=== PATIENT | female | born 1950 | race Caucasian/White ===

== ENCOUNTER 2017-07-21 17:16 | Emergency (ER) | payer MEDICARE ==
[2017-07-21 17:27] VITALS: BP 125/82
--- NOTE | 2017-07-21 17:48 | UC ---
Complaint Female HPI - HPI Summary HPI Summary: Patient has been having discomfort for the past few days with urination, she is morbidly obese, she aslo presents with a skin tear on the hand. - History Of Current Complaint Chief Complaint: UCGU Stated Complaint: URINARY Time Seen by Provider: 07/21/17 17:30 Hx Obtained From: Patient ?: No Onset/Duration: Sudden Onset, Lasting Days Timing: Constant Severity Initially: Mild Severity Currently: Moderate Character: Burning Aggravating Factor(s): Urination Alleviating Factor(s): Nothing Associated Signs And Symptoms: Positive: Back Pain - Allergies/Home Medications Allergies/Adverse Reactions: Allergies Allergy/AdvReac Type Severity Reaction Status Date / Time Morphine Allergy Itching Verified 07/21/17 17:26 Naproxen Allergy See Comment Verified 07/21/17 17:26 Home Medications: Home Medications Amitriptyline TAB* [Elavil TAB*] 200 mg PO BEDTIME 07/21/17 [History Confirmed 07/21/17] Aspirin Low Dose CHEW TAB* [Aspirin Low Dose TAB*] 81 mg PO DAILY 07/21/17 [ History Confirmed 07/21/17] Furosemide TAB* [Lasix TAB*] 60 mg PO DAILY 07/21/17 [History Confirmed 07/21/17 ] Gabapentin CAP(*) [Neurontin 300 CAP(*)] 600 mg PO BID 07/21/17 [History Confirmed 07/21/17] Levothyroxine TAB* [Synthroid TAB*] 200 mcg PO DAILY 07/21/17 [History Confirmed 07/21/17] Lisinopril TAB* [Prinivil TAB*] 10 mg PO DAILY 07/21/17 [History Confirmed 07/21] Lovastatin [Altoprev] 20 mg PO BEDTIME 07/21/17 [History Confirmed 07/21/17] Magnesium Oxide TAB* [MagOx 400 TAB*] 800 mg PO DAILY 07/21/17 [History Confirmed 07/21/17] Metoprolol Tartrate TAB* [Lopressor TAB*] 50 mg PO DAILY 07/21/17 [History Confirmed 07/21/17] Nystatin TOP POWDER* 1 applic TOPICAL BID 07/21/17 [History Confirmed 07/21/17] Omeprazole CAP* [Prilosec CAP* 20 MG] 40 mg PO DAILY 07/21/17 [History Confirmed 07/21/17] amLODIPine TAB* [Norvasc 5 mg TAB*] 5 mg PO DAILY 07/21/17 [History Confirmed ] PMH/Surg Hx/FS Hx/Imm Hx Previously Healthy: Yes - Surgical History Surgical History: Yes Surgery Procedure, Year, and Place: 2 C-SECTIONS. GALLBLADDER. LT CARPAL TUNNEL - Family History Known Family History: Positive: Cardiac Disease, Hypertension, Other - Social History Alcohol Use: None Substance Use Type: None Smoking Status (MU): Never Smoked Tobacco Review of Systems Constitutional: Negative Skin: Negative Eyes: Negative ENT: Negative Respiratory: Negative Cardiovascular: Negative Gastrointestinal: Negative Genitourinary: Dysuria, Hematuria, Frequency, Urgency Motor: Negative Neurovascular: Negative Musculoskeletal: Negative Neurological: Negative Psychological: Negative Is Patient Immunocompromised?: No All Other Systems Reviewed And Are Negative: Yes Physical Exam Triage Information Reviewed: Yes Appearance: Well-Appearing, Pain Distress, Obese Vital Signs: Initial Vital Signs Temp 98.2 F 07/21/17 17:22 Pulse 86 07/21/17 17:22 Resp 14 07/21/17 17:22 BP 125/82 07/21/17 17:22 Vital Signs Reviewed: Yes Eye Exam: Normal ENT Exam: Normal Dental Exam: Normal Neck exam: Normal Respiratory Exam: Normal Cardiovascular Exam: Normal Cardiovascular: Positive: RRR, No Murmur, Pulses Normal Abdominal Exam: Normal Abdomen Description: Positive: Nontender, No Organomegaly, Soft, CVA Tenderness (R) - neg, CVA Tenderness (L) - neg Bowel Sounds: Positive: Present Musculoskeletal Exam: Normal Musculoskeletal: Positive: Strength Intact, ROM Intact, No Edema Neurological Exam: Normal Neurological: Positive: Alert, Muscle Tone Normal Psychological Exam: Normal Skin Exam: Normal Complaint Female Dx - Course Course Of Treatment: hx obtained, exam performed ,meds reviewed, UA pos for leuks and blood, treated for UTI and Yeast infection - Differential Dx/Diagnosis Differential Diagnosis/HQI/PQRI: Ureteral Stone, Urinary Tract Infection Provider Diagnoses: UTI. vaginitis Discharge - Discharge Plan Condition: Stable Disposition: HOME Patient Education Materials: Urinary Tract Infection in Women (ED) Additional Instructions: 1. take the medication as prescribed. 2. If you are not having improvment of symptoms follow up with your primary doctor
[2017-07-21] MEDS ORDERED: Cephalexin CAP* 500 MG PO ONE (17:52)
[2017-07-21] MEDS ORDERED: Phenazopyridine TAB* 100 MG PO ONE (18:06)
== END 2017-07-21 18:20 | disposition home or self-care (01) ==
LOC: UCCORT 17:16
DX: N39.0 Urinary tract infection, site not specified (principal); N76.0 Acute vaginitis; Z79.82 Long term (current) use of aspirin
CPT/HCPCS: 81003; 87077; 87086; 87186; 99213; A9270-GY; G0463

== ENCOUNTER 2017-07-22 16:24 | Inpatient (IN) | payer MEDICARE ==
[2017-07-22] MEDS ORDERED: NS 0.9% 1000 ML*IV.FLUID IV ONE (16:47)
[2017-07-22] MEDS ORDERED: cefTAZidime* 1 GM in NS 0.9% 50 ML* 50 ML IVPB ONE (16:47)
--- NOTE | 2017-07-22 16:55 | ED ---
Progress - Progress Note Progress Note: 66 yo morbidly obese DM F BIBA for increased weakness, inability to get out of chair to use BR, so was incontinent of urine. Pt was seen at urgent care yesterday, DX UTI and vaginitis and started on cephalexin 500mg bid and fluconazole 150mg po q week x 2 weeks. FS glucose not done by EMS. Pt meets SIRS criteria with temp 100 on adm and O2 sat 89%. Sepsis order set initiated with ceftazidime ab ordered because pt's comoribidities are DM and morbid obesity. Other causes of weakness and infection addressed with FS glucose, EKG, troponin, and CXR. Brief Exam in hallway: Pt morbidly obese: alert, speech is clear, resps are unlabored. Lungs clear, Cor s1 s2, abd soft, nontender. Course/Dx - Diagnoses Provider Diagnoses: Diabetes mellitus, SIRS (systemic inflammatory response syndrome)
[2017-07-22] MEDS ORDERED: NS 0.9% 50 ML* 50 ML ONE (17:24)
--- NOTE | 2017-07-22 17:41 | RAD ---
Indication: Weakness. 2 views of the chest demonstrates no mediastinal shift. Heart is of normal size and configuration. Lungs are clear. The study is limited due to body habitus. IMPRESSION: No active disease is noted.
[2017-07-22 19:47] LABS: Hematocrit 39 % (35-47); Hemoglobin 12.4 g/dl (12.0-16.0); Mean Corpuscular HGB Conc 32 g/dl (31-36); Mean Corpuscular Hemoglobin 27 pg (27-31); Mean Corpuscular Volume 85 fL (80-97); Mean Platelet Volume 8 um3 (7.4-10.4); Red Blood Count 4.57 10^6/ul (4.0-5.4); Red Cell Distribution Width 18 % (10.5-15); White Blood Count 15.3 10^3/ul (3.5-10.8)
[2017-07-22 20:03] LABS: Albumin 3.2 g/dL (3.2-5.2); BUN/Creatinine Ratio 13.2 (8-20); C Reactive Protein 282.18 mg/L (< 5.00); EGFR African American 22.5 (>60); EGFR Non-African American 17.5 (>60); Globulin 3.6 g/dL (2-4); Total Bilirubin 0.6 mg/dL (0.2-1.0); Total Protein 6.8 g/dL (6.4-8.9); Troponin I 0.01 ng/mL (<0.04)
[2017-07-22 20:06] LABS: Potassium 5.5 mmol/L (3.5-5.0)
[2017-07-22 20:49] LABS: Erythrocyte Sed Rate 64 mm/Hr (0-40)
[2017-07-22] MEDS ORDERED: NS 0.9% 1000 ML* 3,000 ML IV ONE (20:57)
[2017-07-22] MEDS ORDERED: Dextrose 50% Syringe 50 ML* 25 GM/50 ML SYRINGE IV PUSH PRN (20:57)
[2017-07-22] MEDS ORDERED: Ondansetron INJ* 2 MG/ML VIAL IV PRN (20:57)
[2017-07-22] MEDS ORDERED: Vancomycin(*) 2,000 MG in NS 0.9% 500 ML BAG* 500 ML IVPB ONE (21:45)
[2017-07-22] MEDS: Heparin VIAL(*) 5000 UNITS/ML VIAL (FIVE THOUSAND) SUBCUT SCH (23:00)
[2017-07-23 00:04] LABS: Urine Bacteria 1+ (Absent); Urine Bilirubin Negative (Negative); Urine Glucose Negative (Negative); Urine Nitrite Positive (Negative)
[2017-07-23] MEDS: NS 0.9% 1000 ML* 1,000 ML IV SCH ×3 (00:19→21:04)
[2017-07-23] MEDS: Cefepime 2 GM in Dextrose(*) 2 GM/50 ML BAG IV SCH (00:58)
--- NOTE | 2017-07-23 01:47 | HP ---
CC: Dr. Wolff * HISTORY AND PHYSICAL: DATE OF ADMISSION: 07/22/17 PRIMARY CARE PROVIDER: Dr. Wolff from [facility]. ATTENDING PHYSICIAN WHILE IN THE HOSPITAL: Kavya Simmons DO * (report dictated by Fam Barton NP). CHIEF COMPLAINT: 1. Altered mental status. 2. Fever. 3. Dysuria. 4. Erythema to pannus. HISTORY OF PRESENT ILLNESS: Ms. Polanco is a 66-year-old female patient who is morbidly obese who has a history of diabetes, hypertension, hyperlipidemia, and hypothyroidism. She comes in today stating that since Saturday and Saturday, had dysuria and frequency and hopeful that throughout the weekend, it would go away ; however, yesterday she went to the Urgent Care, she was started on Keflex. She was given a dose yesterday and took home one dose, which she took this morning; however, the family noted that she was still acting very weak, drowsy, confused at times, not acting herself. They noted that she was having a significant amount of erythema developing in the pannus that was becoming hot to touch, painful to touch. She has had issues with this in the past. Her daughter was concerned and she came in to the ER. There has been reports of fever as high as 101.6. Initially, thought it was from the urinary tract infection. She came in to the ER, it was noted that she had a white count of 15 ,000. She did appear to be hypotensive and because of this, she came in to the ED to be evaluated. They also noted that her appetite has been down as well for the last couple days. She came in to the ED, it was noticed she had a fever. She appeared to be septic. It appeared the source was probably from her pannus versus her urine. The hospitalist service was asked to evaluate for admission. PAST MEDICAL HISTORY: Significant for: 1. Diabetes. 2. Hypertension. 3. Hyperlipidemia. 4. Hypothyroidism. PAST SURGICAL HISTORY: 1. She has had x2. 2. Laparoscopic cholecystectomy. 3. She has had gastric bypass, sleeve. HOME MEDICATIONS: Include: 1. Lantus 118 units subcu at bedtime. 2. Exenatide 2 mg subcu weekly. 3. Diflucan 150 mg weekly. 4. Keflex 500 mg p.o. b.i.d. 5. Lopressor 50 mg p.o. daily. 6. Mag ox 800 mg daily. 7. Mevacor 20 mg at bedtime. 8. Lisinopril 10 mg daily. 9. Amlodipine 5 mg daily. 10. Prilosec 40 mg daily. 11. Nystatin 1 application topically b.i.d. 12. Synthroid 200 mcg daily. 13. Neurontin 600 mg p.o. b.i.d. 14. Lasix 60 mg daily. 15. Aspirin 81 mg daily. 16. Elavil 200 mg p.o. at bedtime. ALLERGIES TO MEDICATIONS: Include MORPHINE and NAPROXEN. FAMILY HISTORY: Mother had a history of CAD and [place]. Father had a history of rheumatic fever. SOCIAL HISTORY: She is a 2 and a half pack a day smoker in the past. She quit about 6 years ago. She smoked for 40 years. She does not drink alcohol. She lives with her family. Surrogate decision maker is her daughter, Carmella. REVIEW OF SYSTEMS: There is no documented fever. There was no significant weight change. There was no double vision. Denied having any ear discharge. There was no rhinorrhea. No sore throat. No thyroid enlargement. She denied having any chest pain. There was no orthopnea, no nocturnal dyspnea. There was abdominal pain at pannus and erythema there. There was no chest pain. No orthopnea. No loss of consciousness. No pruritus. No skin ulcerations. Review of 14 systems was completed, all others negative. PHYSICAL EXAMINATION GENERAL: At this time, Ms. Polanco is a 66-year-old female patient. She is sitting in the ED stretcher. She is chronically ill appearing. She is morbidly obese. She does not appear to be in any acute distress. VITAL SIGNS: Blood pressure 136/94, pulse of 112, respirations were 20, her O2 sat was 87% room air, on 2 L it went up to 95%, and temperature was 100. HEENT: Head: Atraumatic, normocephalic. Eyes: EOMs are intact. Sclerae anicteric and not pale. Throat: Oral mucosa appears to be moist. No oropharyngeal erythema. NECK: Supple. LUNGS: Clear to auscultation. No wheezes, rales, or rhonchi. HEART: Sounds S1, S2. Regular rate and rhythm. No murmurs, rubs, or gallops. ABDOMEN: Soft, flat, nontender. Bowel sounds present. EXTREMITIES: Pulses were 2+ throughout. No peripheral edema. NEUROLOGIC: She is awake, alert, and oriented x3. No gross focal deficits. SKIN: Intact. The patient does have an area of erythema noted to the pannus extending to the entire pannus. It is erythematic and warm to touch. No open areas were noted. Otherwise, skin was intact. She does have what appears to be fungal infection to the folds. LABORATORY DATA/DIAGNOSTIC STUDIES: WBC of 15.3, RBC of 4.57, hemoglobin 12.4 , hematocrit 39, platelet count of 244. INR was 1.17. PTT of 30.2. The sodium was 135, potassium was 5.5, chloride 103, bicarb 25, BUN 36, creatinine 2.72, her baseline is 1.2, glucose 128. Lactic 1.4. Calcium 9.0. Total bili 0.6, AST 14, ALT 13, alk phos 72. CK 81. Troponin still pending. The CRP was 282. The BNP was 58. Albumin was 3.2. Serology negative for flu. She did have a chest x-ray obtained today, which revealed no active disease. She did have an EKG obtained today that showed sinus rhythm, rate of 94, no ST elevations or T wave inversions were noted. Old medical records were reviewed. ASSESSMENT AND PLAN: Ms. Polanco is a 66-year-old female patient coming in to the ER today with complaints of weakness, fevers, chills, confusion. On evaluation, found to be septic. She will be admitted under inpatient status for : 1. Sepsis. She does have elevated white count of 15,000. In addition to this , she is tachycardic. She had a fever of 100 and the obvious source is either her urine, most like her pannus. The plan, she is getting 3 L of fluid wide open. Blood cultures have been ordered, but she is a hard stick and nursing is having a hard time drawing them. They were ordered at 1806 and again are still pending. We are trying to get them. The patient was placed on vanco and cefepime. We will hydrate her and repeat lactic acid is pending. We will follow closely. 2. Diabetes. She will be on lispro sliding scale. 3. Hypertension. Continue meds as prescribed. 4. Hyperlipidemia. Continue statin therapy. 5. Hypothyroidism. Continue her meds as prescribed. 6. DVT prophylaxis. She is high risk. She will be placed on heparin subcu. 7. Code status. Full code. 8. Fluids, electrolytes, and nutrition. She can have a consistent carb diet. TIME SPENT: Time spent on the admission was approximately 60 minutes; greater than half the time was spent [id number] with the patient obtaining my history and physical; other half time was spent going over the plan of care with the patient and implementing plan of care. I did discuss plan of care with my attending, Dr. Simmons; she is in agreement. FAM BARTON, KONG [id number]/CPS #: [id number] MTDÁlvaro
[2017-07-23] MEDS ORDERED: Vancomycin per Pharmacy* NOTE FOLLOW UP PRN (02:32)
[2017-07-23] MEDS: Acetaminophen TAB* 325 MG PO PRN ×3 (03:34→21:10)
[2017-07-23 05:10] LABS: Hematocrit 35 % (35-47); Hemoglobin 11.2 g/dl (12.0-16.0); Mean Corpuscular HGB Conc 32 g/dl (31-36); Mean Corpuscular Hemoglobin 28 pg (27-31); Mean Corpuscular Volume 86 fL (80-97); Mean Platelet Volume 8 um3 (7.4-10.4); Red Blood Count 4.06 10^6/ul (4.0-5.4); Red Cell Distribution Width 18 % (10.5-15); White Blood Count 10.6 10^3/ul (3.5-10.8)
[2017-07-23 05:20] LABS: BUN/Creatinine Ratio 17.4 (8-20); Calcium 8.2 mg/dL (8.6-10.3); EGFR African American 28.9 (>60); EGFR Non-African American 22.4 (>60); Potassium 4.7 mmol/L (3.5-5.0)
[2017-07-23] MEDS: Levothyroxine TAB* 100 MCG TAB PO SCH (05:22)
[2017-07-23] MEDS: Heparin VIAL(*) 5000 UNITS/ML VIAL (FIVE THOUSAND) SUBCUT SCH ×3 (05:22→21:13)
--- NOTE | 2017-07-23 08:25 | PN ---
Subjective Date of Service: 07/23/17 Interval History: This is a 66 yo female who is morbidly obese with DM, HTN, HLD and hypothyroidism who was admitted yesterday with AMS, fever and dysuria. She was treated for suspected UTI and panniculitis has her pannus was also noted to be erythematous and tender. She was hypotensive and febrile in the ER and admitted to ICU for severe sepsis. This am, patient reports feeling slightly better. She is fatigued. Denies pain. She is chilled. 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 No abd pain, n/v. No CP or SOB Objective Active Medications: Acetaminophen (Tylenol Tab*) 650 mg PO Q4H PRN PRN Reason: FEVER/PAIN Last Admin: 07/23/17 03:34 Dose: 650 mg Amitriptyline HCl (Elavil Tab*) 200 mg PO BEDTIME AZAM Aspirin (Aspirin Low Dose Tab*) 81 mg PO DAILY AZAM Atorvastatin Calcium (Lipitor*) 5 mg PO BEDTIME AZAM Dextrose (D50w Syringe 50 Ml*) 12.5 gm IV PUSH .FOR FS < 60 - SS PRN PRN Reason: FS < 60 Gabapentin (Neurontin Cap(*)) 600 mg PO BID AZAM Heparin Sodium (Porcine) (Heparin Vial(*)) 5,000 units SUBCUT Q8HR [facility] Last Admin: 07/23/17 05:22 Dose: 5,000 units Cefepime HCl (Maxipime 2 Gm In Dextrose Duplex (*)) 2 gm in 50 mls @ 100 mls/ hr IV Q24H [facility] Last Admin: 07/23/17 00:58 Dose: 100 mls/hr Sodium Chloride (Ns 0.9% 1000 Ml*) 1,000 mls @ 100 mls/hr IV PER RATE [facility] Last Admin: 07/23/17 00:19 Dose: 100 mls/hr Vancomycin HCl 1,000 mg/ (Sodium Chloride) 250 mls @ 166.667 mls/hr IVPB Q12H AZAM Insulin Glargine (Lantus(*)) 118 units SUBCUT BEDTIME AZAM Insulin Human Lispro (Humalog*) 0 units SUBCUT AC AZAM PRN Reason: Protocol Levothyroxine Sodium (Synthroid Tab*) 200 mcg PO 0600 [facility] Last Admin: 07/23/17 05:22 Dose: 200 mcg Nystatin (Nystatin Top Powder*) 1 applic TOPICAL BID AZAM Omeprazole (Prilosec Cap*) 40 mg PO DAILY@0730 AZAM Ondansetron HCl (Zofran Inj*) 4 mg IV Q6H PRN PRN Reason: NAUSEA Pharmacy Consult (Vancomycin Per Pharmacy*) 1 note FOLLOW UP . PRN PRN Reason: PER PROTOCOL Pharmacy Profile Note (Vancomycin Trough Check) 1 note FOLLOW UP 0900 ONE Stop: 07/24/17 09:01 Vital Signs: Temp Pulse Resp BP Pulse Ox 100.0 F 96 23 153/69 97 07/23/17 07:31 07/23/17 07:31 07/23/17 07:31 07/23/17 07:31 07/23/17 07:31 Oxygen Devices in Use Now: Nasal Cannula Appearance: Lethargic obese female in ICU bed. Appears slightly confused. Respiratory: Symmetrical Chest Expansion and Respiratory Effort, Clear to Auscultation Cardiovascular: NL Sounds; No Murmurs; No JVD, RRR Abdominal: NL Sounds; No Tenderness; No Distention Extremities: No Edema Skin: - - pannus is indurated and erythematous, mildly TTP Neurological: Alert and Oriented x 3 Result Diagrams: 07/23/17 04:57 07/23/17 04:57 Microbiology and Other Data: Microbiology 07/22/17 22:28 Nasal Screen MRSA (PCR)(YESENIA) - Final Nasal Mrsa Negative Assess/Plan/Problems-Billing Assessment: This is a morbidly obese female with DM, HTN, HLD and hypothyroidism who presented with AMS, fever, dysuria and erythematous pannus admitted to ICU for severe sepsis due to UTI and panniculitis. - Patient Problems (1) Severe sepsis Comment: Present at admission secondary to UTI and panniculitis Presented with fever, leukocytosis, hypotension and AMS qSOFA = 2 at admission Cont Cefepime and Vanco Cultures pending (2) UTI (urinary tract infection) Comment: Empiric coverage with Cefepime Cultures pending (3) Panniculitis Comment: Tender, erythematous and indurated Empirically covered with Vanco and cefepime (4) ADITI (acute kidney injury) Comment: Secondary to sepsis Cont IVF Monitor renal fxn (5) Diabetes Comment: IDDM Decent glycemic control since admission Cont basal/bolus insulin therapy (6) Hypertension Comment: Initially hypotensive at admission Now normotensive Will cont to hold home antihypertensives at this time Will cont to monitor for appropriateness to resume (7) Hyperlipidemia (8) Hypothyroidism Comment: Cont levothyroxine (9) Morbid obesity Comment: BMI 63 (10) Full code status (11) DVT prophylaxis Comment: SQ heparin Status and Disposition: Inpatient. Cont ICU level care, likely appropriate for transfer to medical floor this afternoon.
[2017-07-23] MEDS: Omeprazole CAP* 20 MG PO SCH (08:40)
[2017-07-23] MEDS: Vancomycin(*) 1,000 MG in NS 0.9% 250 ML* 250 ML IVPB SCH ×2 (08:40→21:06)
[2017-07-23] MEDS: Gabapentin CAP(*) 300 MG PO SCH ×2 (08:40→21:11)
[2017-07-23] MEDS: Insulin LISPRO* 1 UNITS UNIT SUBCUT SCH ×3 (08:40→18:28)
[2017-07-23] MEDS: Aspirin Low Dose CHEW TAB* 81 MG PO SCH (08:40)
[2017-07-23] MEDS: Nystatin TOP POWDER* 15 GM BTL TOPICAL SCH ×2 (11:27→21:13)
[2017-07-23 21:02] LABS: Magnesium 1.8 mg/dL (1.9-2.7)
[2017-07-23] MEDS: Amitriptyline TAB* 100 MG PO SCH (21:09)
[2017-07-23] MEDS: Atorvastatin* 10 MG TAB PO SCH (21:11)
[2017-07-23] MEDS: Insulin GLARGINE(*) 1 UNITS UNIT SUBCUT SCH (21:12)
[2017-07-24] MEDS: Cefepime 2 GM in Dextrose(*) 2 GM/50 ML BAG IV SCH (01:41)
[2017-07-24] MEDS: Docusate CAP* 100 MG PO SCH ×3 (01:41→20:47)
[2017-07-24] MEDS: Acetaminophen TAB* 325 MG PO PRN ×2 (05:25→20:50)
[2017-07-24] MEDS: Levothyroxine TAB* 100 MCG TAB PO SCH (05:25)
[2017-07-24] MEDS: Heparin VIAL(*) 5000 UNITS/ML VIAL (FIVE THOUSAND) SUBCUT SCH ×3 (05:39→20:54)
[2017-07-24 06:20] LABS: Urine Bacteria Absent (Absent); Urine Bilirubin Negative (Negative); Urine Glucose Negative (Negative); Urine Nitrite Negative (Negative)
[2017-07-24 08:59] LABS: Hematocrit 35 % (35-47); Hemoglobin 11.4 g/dl (12.0-16.0); Mean Corpuscular HGB Conc 33 g/dl (31-36); Mean Corpuscular Hemoglobin 28 pg (27-31); Mean Corpuscular Volume 85 fL (80-97); Mean Platelet Volume 8 um3 (7.4-10.4); Red Blood Count 4.11 10^6/ul (4.0-5.4); Red Cell Distribution Width 18 % (10.5-15); White Blood Count 6.8 10^3/ul (3.5-10.8)
[2017-07-24] MEDS: Insulin LISPRO* 1 UNITS UNIT SUBCUT SCH ×3 (09:00→18:21)
[2017-07-24] MEDS ORDERED: Vancomycin Trough Check NOTE FOLLOW UP ONE (09:00)
[2017-07-24] MEDS: Vancomycin(*) 1,000 MG in NS 0.9% 250 ML* 250 ML IVPB SCH ×2 (09:00→20:44)
[2017-07-24] MEDS: Magnesium Oxide TAB* 400 MG PO SCH ×2 (09:01→20:47)
[2017-07-24] MEDS: Omeprazole CAP* 20 MG PO SCH (09:01)
[2017-07-24] MEDS: Gabapentin CAP(*) 300 MG PO SCH ×2 (09:01→20:47)
[2017-07-24] MEDS: Aspirin Low Dose CHEW TAB* 81 MG PO SCH (09:02)
[2017-07-24] MEDS: Nystatin TOP POWDER* 15 GM BTL TOPICAL SCH ×2 (09:12→20:48)
[2017-07-24 09:24] LABS: BUN/Creatinine Ratio 22.4 (8-20); Calcium 8.5 mg/dL (8.6-10.3); EGFR African American 55.1 (>60); EGFR Non-African American 42.9 (>60); Potassium 4.3 mmol/L (3.5-5.0)
--- NOTE | 2017-07-24 09:27 | PN ---
Subjective Date of Service: 07/24/17 Interval History: Patient seen and examined at bedside. Denies fever this AM, reports fevers last evening, chills, shortness of breath, chest discomfort, N/V/D, or urinary symptoms. Pt status that her pannus is less painful today and it can be touched without pain. Family History: Unchanged from Admission Social History: Unchanged from Admission Past Medical History: Unchanged from Admission Objective Active Medications: Acetaminophen (Tylenol Tab*) 650 mg PO Q4H PRN Reason: FEVER/PAIN Amitriptyline HCl (Elavil Tab*) 200 mg PO BEDTIME AZAM Aspirin (Aspirin Low Dose Tab*) 81 mg PO DAILY AZAM Atorvastatin Calcium (Lipitor*) 5 mg PO BEDTIME AZAM Dextrose (D50w Syringe 50 Ml*) 12.5 gm IV PUSH .FOR FS < 60 - SS PRN Reason: FS < 60 Docusate Sodium (Colace Cap*) 100 mg PO BID AZAM Gabapentin (Neurontin Cap(*)) 600 mg PO BID AZAM Heparin Sodium (Porcine) (Heparin Vial(*)) 5,000 units SUBCUT Q8HR [facility] Heparin Sodium (Porcine) (Heparin Flush Picc/Ml/Cvc(*)) 1 ml FLUSH 0600,1800 AZAM Cefepime HCl (Maxipime 2 Gm In Dextrose Duplex (*)) 2 gm in 50 mls @ 100 mls/ hr IV Q24H AZAM Sodium Chloride (Ns 0.9% 1000 Ml*) 1,000 mls @ 100 mls/hr IV PER RATE AZAM Vancomycin HCl 1,000 mg/ (Sodium Chloride) 250 mls @ 166.667 mls/hr IVPB Q12H [facility] Insulin Glargine (Lantus(*)) 118 units SUBCUT BEDTIME AZAM Insulin Human Lispro (Humalog*) 0 units SUBCUT AC AZAM Levothyroxine Sodium (Synthroid Tab*) 200 mcg PO 0600 [facility] Magnesium Oxide (Magox 400 Tab*) 400 mg PO BID AZAM Nystatin (Nystatin Top Powder*) 1 applic TOPICAL BID AZAM Omeprazole (Prilosec Cap*) 40 mg PO DAILY@0730 AZAM Ondansetron HCl (Zofran Inj*) 4 mg IV Q6H PRN Reason: NAUSEA Pharmacy Consult (Vancomycin Per Pharmacy*) 1 note FOLLOW UP . PRN Vital Signs 1007/23/17 07/23/17 09:31 09:45 10:00 Temperature 101.5 F 101.7 F 101.7 F Pulse Rate 108 106 109 Respiratory 20 23 19 Rate Blood Pressure 64/51 117/72 (mmHg) O2 Sat by Pulse 99 98 95 Oximetry 07/23/17 07/23/17 07/23/17 10:35 10:45 11:00 Temperature 101.7 F 101.5 F 101.3 F Pulse Rate 109 108 107 Respiratory 19 25 18 Rate Blood Pressure 118/55 85/56 (mmHg) O2 Sat by Pulse 93 92 92 Oximetry 07/23/17 07/23/17 07/23/17 11:01 11:15 11:22 Temperature 101.3 F 101.1 F Pulse Rate 106 105 Respiratory 15 24 Rate Blood Pressure 112/86 111/52 (mmHg) O2 Sat by Pulse 94 92 91 Oximetry 07/23/17 07/23/17 07/23/17 11:55 12:00 12:10 Temperature 99.3 F Pulse Rate 99 103 Respiratory 21 17 Rate Blood Pressure 110/59 (mmHg) O2 Sat by Pulse 95 95 Oximetry 07/23/17 07/23/17 07/23/17 12:31 12:45 13:00 Temperature Pulse Rate 97 95 95 Respiratory 29 17 25 Rate Blood Pressure 125/65 105/79 126/62 (mmHg) O2 Sat by Pulse 96 97 99 Oximetry 07/23/17 07/23/17 07/23/17 13:16 13:30 13:37 Temperature 98.2 F Pulse Rate 103 104 Respiratory 22 15 Rate Blood Pressure 89/74 118/68 (mmHg) O2 Sat by Pulse 99 96 Oximetry 07/23/17 07/23/17 07/23/17 13:46 14:00 14:18 Temperature Pulse Rate 95 95 Respiratory 20 23 Rate Blood Pressure 135/100 127/76 (mmHg) O2 Sat by Pulse 96 100 Oximetry 07/23/17 07/23/17 07/23/17 18:00 18:10 20:00 Temperature 98.8 F 100.7 F Pulse Rate 105 103 Respiratory 20 20 16 Rate Blood Pressure 141/64 147/70 (mmHg) O2 Sat by Pulse 97 97 Oximetry 07/23/17 07/23/17 07/23/17 21:11 23:11 23:56 Temperature 97.6 F Pulse Rate 97 Respiratory 20 14 18 Rate Blood Pressure 105/53 (mmHg) O2 Sat by Pulse 87 Oximetry 07/24/17 07/24/17 07/24/17 00:00 04:32 04:43 Temperature 99.1 F Pulse Rate 100 Respiratory 16 Rate Blood Pressure 114/64 (mmHg) O2 Sat by Pulse 94 89 99 Oximetry 07/24/17 07/24/17 05:00 09:01 Temperature Pulse Rate Respiratory 18 Rate Blood Pressure (mmHg) O2 Sat by Pulse 99 Oximetry Oxygen Devices in Use Now: Nasal Cannula Respiratory: Symmetrical Chest Expansion and Respiratory Effort, Clear to Auscultation Cardiovascular: NL Sounds; No Murmurs; No JVD, RRR Abdominal: NL Sounds; No Tenderness; No Distention Extremities: No Edema Skin: - - Pannus is indurated and erythematous Neurological: Alert and Oriented x 3, NL Muscle Strength and Tone Lines/Tubes/Other Access: Clean, Dry and Intact Peripheral IV - midline - site benign Nutrition: Taking PO's Result Diagrams: 07/24/17 08:45 07/24/17 08:45 Microbiology and Other Data: Microbiology 07/22/17 22:28 Nasal Screen MRSA (PCR)(YESENIA) - Final Nasal Mrsa Negative Assess/Plan/Problems-Billing Assessment: Ms. Polanco is a morbidly obese female with DM, HTN, HLD and hypothyroidism who presented with AMS, fever, dysuria and erythematous pannus who was initialy admitted to ICU for severe sepsis due to UTI and panniculitis. - Patient Problems (1) UTI (urinary tract infection) Comment: - Febrile yesterday, no leukocytosis - Urine cultures pending - Empiric coverage with Cefepime (2) Panniculitis Code(s): M79.3 - PANNICULITIS, UNSPECIFIED SNOMED Code(s): 50090958 Comment: -Febrile yesterday and no leukocytosis - Tender, erythematous and indurated - Empirically covered with Vanco and cefepime (3) Severe sepsis Code(s): A41.9 - SEPSIS, UNSPECIFIED ORGANISM; R65.20 - SEVERE SEPSIS WITHOUT SEPTIC SHOCK SNOMED Code(s): 69708588 Comment: - Present at admission secondary to UTI and panniculitis - SIRS and qSOFA criteria with fever, leukocytosis, hypotension and AMS at admission - Continues to meet SIRS criteria with leukocytosis and tachycardia, no longer meeting qSofa criteria - Blood cultures no growth, day 1 - Continue Cefepime and Vanco (4) ADITI (acute kidney injury) Code(s): N17.9 - ACUTE KIDNEY FAILURE, UNSPECIFIED SNOMED Code(s): 51879802 Comment: - Improving - Secondary to sepsis - Continue IVF and monitor renal fxn (5) Diabetes Code(s): E11.9 - TYPE 2 DIABETES MELLITUS WITHOUT COMPLICATIONS SNOMED Code(s) : 60597420 Comment: - IDDM - Glucose 140-210's - Continue basal/bolus insulin therapy (6) Hypertension Code(s): I10 - ESSENTIAL (PRIMARY) HYPERTENSION SNOMED Code(s): 05830256 Comment: - Initially hypotensive at admission - Now normotensive, SBP 110-140's - Will continue to hold home antihypertensives at this time and monitor for appropriateness to resume (7) Hyperlipidemia Code(s): E78.5 - HYPERLIPIDEMIA, UNSPECIFIED SNOMED Code(s): 50100108 Comment: - Continue statin (8) Hypothyroidism Code(s): E03.9 - HYPOTHYROIDISM, UNSPECIFIED SNOMED Code(s): 62787943 Comment: - TSH 3.56 - 04/2017 - Continue levothyroxine (9) Morbid obesity Code(s): E66.01 - MORBID (SEVERE) OBESITY DUE TO EXCESS CALORIES SNOMED Code(s ): 099477580 Comment: - BMI 63 (10) DVT prophylaxis Code(s): HOG5807 - SNOMED Code(s): 780078602 Comment: - SQ heparin (11) Full code status Code(s): Z78.9 - OTHER SPECIFIED HEALTH STATUS SNOMED Code(s): 739333177 Status and Disposition: Inpatient. Plan to discharge to home when medically stable, possibly in 1-2 days.
[2017-07-24] MEDS: Amitriptyline TAB* 100 MG PO SCH (20:47)
[2017-07-24] MEDS: Atorvastatin* 10 MG TAB PO SCH (20:47)
[2017-07-24] MEDS: Insulin GLARGINE(*) 1 UNITS UNIT SUBCUT SCH (20:54)
--- NOTE | 2017-07-24 22:20 | ED ---
Jean Lunsford Benjamin, scribed for Denny Beltre MD on 07/22/17 at 1800 . Complex/Multi-Sys Presentation - HPI Summary HPI Summary: 66yo morbidly obese DM female BIBA for increased weakness, and shivering since last night. Pt had UTI symptoms for a few days and was seen at yesterday, where she was dx with UTI and vaginosis. Pt was started on cephalexin 500mg bid and fluconazole 150mg po q week x 2 weeks. - History Of Current Complaint Chief Complaint: EDWeakness Time Seen by Provider: 07/22/17 16:56 Hx Obtained From: Patient Onset/Duration: Gradual Onset, Lasting Weeks, Still Present Timing: Constant Severity Currently: Mild Severity Initially: Mild Location: Negative Associated Signs And Symptoms: Positive: Weakness, Fever, Other - chills - Allergies/Home Medications Allergies/Adverse Reactions: Allergies Allergy/AdvReac Type Severity Reaction Status Date / Time Morphine Allergy Itching Verified 07/21/17 17:26 Naproxen Allergy See Comment Verified 07/21/17 17:26 Home Medications: Home Medications Exenatide VIAL (NF) [Bydureon (NF)] 2 mg SUBCUT WEEKLY 07/22/17 [History Confirmed 07/22/17] Insulin GLARGINE(*) [Lantus(*)] 118 units SUBCUT BEDTIME 07/22/17 [History Confirmed 07/22/17] Lovastatin(NF) [Mevacor(NF)] 20 mg PO BEDTIME 07/22/17 [History Confirmed ] PMH/Surg Hx/FS Hx/Imm Hx Endocrine/Hematology History: Reports: Hx Diabetes, Hx Thyroid Disease Cardiovascular History: Reports: Hx Hypertension Denies: Hx Pacemaker/ICD Sensory History: Denies: Hx Hearing Aid Psychiatric History: Denies: Hx Panic Disorder - Surgical History Surgery Procedure, Year, and Place: 2 C-SECTIONS. GALLBLADDER. LT CARPAL TUNNEL Infectious Disease History: Yes Infectious Disease History: Denies: Traveled Outside the [place] in Last 30 Days - Family History Known Family History: Positive: Cardiac Disease, Hypertension, Other - Social History Alcohol Use: None Substance Use Type: Reports: None Smoking Status (MU): Never Smoked Tobacco Review of Systems Positive: Fever, Chills Eyes: Negative ENT: Negative Cardiovascular: Negative Respiratory: Negative Gastrointestinal: Negative Genitourinary: Negative Positive: no symptoms reported Musculoskeletal: Negative Skin: Negative Positive: Weakness Psychological: Normal All Other Systems Reviewed And Are Negative: Yes Physical Exam Triage Information Reviewed: Yes Vital Signs On Initial Exam: Initial Vitals Temp Pulse Resp BP Pulse Ox 100.0 F 87 19 147/105 89 07/22/17 16:32 07/22/17 16:32 07/22/17 16:32 07/22/17 16:32 07/22/17 16:32 Vital Signs Reviewed: Yes Appearance: Positive: Well-Appearing, No Pain Distress, Obese - morbidly Skin: Positive: Warm, Skin Color Reflects Adequate Perfusion, Dry, Other - Cellulitis of the panniculus. Head/Face: Positive: Normal Head/Face Inspection Eyes: Positive: Normal, Conjunctiva Clear ENT: Positive: Normal ENT inspection, Hearing grossly normal Neck: Positive: Supple, Nontender Respiratory/Lung Sounds: Positive: Clear to Auscultation, Breath Sounds Present Cardiovascular: Positive: RRR, Pulses are Symmetrical in both Upper and Lower Extremities Abdomen Description: Positive: Nontender, Soft Bowel Sounds: Positive: Present Musculoskeletal: Positive: Strength/ROM Intact Neurological: Positive: Sensory/Motor Intact, Alert, Oriented to Person Place, Time Psychiatric: Positive: Affect/Mood Appropriate - [place] Coma Scale Coma Scale Total: 15 Diagnostics - Vital Signs Vital Signs Temp Pulse Resp BP Pulse Ox 07/22/17 16:47 97 07/22/17 16:32 100.0 F 87 19 147/105 89 - Laboratory Lab Results: Lab Results 07/22/17 07/22/17 07/22/17 Range/Units 18:36 19:30 19:30 WBC (3.5-10.8) 10^3/ul RBC (4.0-5.4) 10^6/ul Hgb (12.0-16.0) g/dl Hct (35-47) % MCV (80-97) fL MCH (27-31) pg MCHC (31-36) g/dl RDW (10.5-15) % Plt Count (150-450) 10^3/ul MPV (7.4-10.4) um3 Neut % (Auto) (38-83) % Lymph % (Auto) (25-47) % Piute % (Auto) (1-9) % Eos % (Auto) (0-6) % Baso % (Auto) (0-2) % Absolute Neuts (auto) (1.5-7.7) 10^3/ul Absolute Lymphs (auto) (1.0-4.8) 10^3/ul Absolute Monos (auto) (0-0.8) 10^3/ul Absolute Eos (auto) (0-0.6) 10^3/ul Absolute Basos (auto) (0-0.2) 10^3/ul Absolute Nucleated RBC 10^3/ul Nucleated RBC % ESR (0-40) mm/Hr INR (Anticoag Therapy) (0.89-1.11) APTT (26.0-36.3) seconds Sodium 135 (133-145) mmol/L Potassium 5.5 H (3.5-5.0) mmol/L Chloride 103 (101-111) mmol/L Carbon Dioxide 25 (22-32) mmol/L Anion Gap 7 (2-11) mmol/L BUN 36 H (6-24) mg/dL Creatinine 2.72 H (0.51-0.95) mg/dL Est GFR ( Amer) 22.5 (>60) Est GFR (Non-Af Amer) 17.5 (>60) BUN/Creatinine Ratio 13.2 (8-20) Glucose 128 H (70-100) mg/dL Lactic Acid (0.5-2.0) mmol/L Calcium 9.0 (8.6-10.3) mg/dL Total Bilirubin 0.60 (0.2-1.0) mg/dL AST 14 (13-39) U/L ALT 13 (7-52) U/L Alkaline Phosphatase 72 (34-104) U/L Total Creatine Kinase 81 (10-223) U/L Troponin I Pending C-Reactive Protein 282.18 H (< 5.00) mg/L B-Natriuretic Peptide 58 ( - 100) pg/mL Total Protein 6.8 (6.4-8.9) g/dL Albumin 3.2 (3.2-5.2) g/dL Globulin 3.6 (2-4) g/dL Albumin/Globulin Ratio 0.9 L (1-3) Influenza A (Rapid) Negative (Negative) Influenza B (Rapid) Negative (Negative) 07/22/17 07/22/1717 Range/Units 19:30 19:30 19:30 WBC 15.3 H (3.5-10.8) 10^3/ul RBC 4.57 (4.0-5.4) 10^6/ul Hgb 12.4 (12.0-16.0) g/dl Hct 39 (35-47) % MCV 85 (80-97) fL MCH 27 (27-31) pg MCHC 32 (31-36) g/dl RDW 18 H (10.5-15) % Plt Count 244 (150-450) 10^3/ul MPV 8 (7.4-10.4) um3 Neut % (Auto) 89.4 H (38-83) % Lymph % (Auto) 7.4 L (25-47) % Piute % (Auto) 2.6 (1-9) % Eos % (Auto) 0.1 (0-6) % Baso % (Auto) 0.5 (0-2) % Absolute Neuts (auto) 13.7 H (1.5-7.7) 10^3/ul Absolute Lymphs (auto) 1.1 (1.0-4.8) 10^3/ul Absolute Monos (auto) 0.4 (0-0.8) 10^3/ul Absolute Eos (auto) 0 (0-0.6) 10^3/ul Absolute Basos (auto) 0.1 (0-0.2) 10^3/ul Absolute Nucleated RBC 0 10^3/ul Nucleated RBC % 0 ESR 64 H (0-40) mm/Hr INR (Anticoag Therapy) 1.17 H (0.89-1.11) APTT 30.2 (26.0-36.3) seconds Sodium (133-145) mmol/L Potassium (3.5-5.0) mmol/L Chloride (101-111) mmol/L Carbon Dioxide (22-32) mmol/L Anion Gap (2-11) mmol/L BUN (6-24) mg/dL Creatinine (0.51-0.95) mg/dL Est GFR ( Amer) (>60) Est GFR (Non-Af Amer) (>60) BUN/Creatinine Ratio (8-20) Glucose (70-100) mg/dL Lactic Acid 1.4 (0.5-2.0) mmol/L Calcium (8.6-10.3) mg/dL Total Bilirubin (0.2-1.0) mg/dL AST (13-39) U/L ALT (7-52) U/L Alkaline Phosphatase (34-104) U/L Total Creatine Kinase (10-223) U/L Troponin I C-Reactive Protein (< 5.00) mg/L B-Natriuretic Peptide ( - 100) pg/mL Total Protein (6.4-8.9) g/dL Albumin (3.2-5.2) g/dL Globulin (2-4) g/dL Albumin/Globulin Ratio (1-3) Influenza A (Rapid) (Negative) Influenza B (Rapid) (Negative) Result Diagrams: 07/24/17 08:45 07/24/17 08:45 Lab Statement: Any lab studies that have been ordered have been reviewed, and results considered in the medical decision making process. - Radiology CXR Xray Interpretation: Positive (See Comments) Radiology Interpretation Completed By: Radiologist - ED physician has reviewed this radiology report and agrees. - EKG 1725. Cardiac Rate: NL - 94bpm EKG Rhythm: Sinus Rhythm ST Segment: Normal Ectopy: None Complex Multi-Symp Course/Dx Course Of Treatment: Reviewed pts medication and allergy lists. High blood pressure noted. - Diagnoses Provider Diagnoses: Diabetes mellitus, SIRS (systemic inflammatory response syndrome) Discharge - Discharge Plan Condition: Stable Disposition: ADMITTED TO [facility] The documentation as recorded by the Jean hartley Benjamin accurately reflects the service I personally performed and the decisions made by , Denny Beltre MD.
[2017-07-25] MEDS: Cefepime 2 GM in Dextrose(*) 2 GM/50 ML BAG IV SCH (01:51)
[2017-07-25] MEDS: Levothyroxine TAB* 100 MCG TAB PO SCH (05:15)
[2017-07-25] MEDS: Heparin VIAL(*) 5000 UNITS/ML VIAL (FIVE THOUSAND) SUBCUT SCH ×2 (05:15→15:12)
[2017-07-25 07:05] LABS: Hematocrit 35 % (35-47); Hemoglobin 11.4 g/dl (12.0-16.0); Mean Corpuscular HGB Conc 33 g/dl (31-36); Mean Corpuscular Hemoglobin 28 pg (27-31); Mean Corpuscular Volume 85 fL (80-97); Mean Platelet Volume 8 um3 (7.4-10.4); Red Blood Count 4.11 10^6/ul (4.0-5.4); Red Cell Distribution Width 18 % (10.5-15); White Blood Count 4.6 10^3/ul (3.5-10.8)
[2017-07-25 07:17] LABS: BUN/Creatinine Ratio 21.4 (8-20); Calcium 8.8 mg/dL (8.6-10.3); EGFR African American 68.9 (>60); EGFR Non-African American 53.6 (>60); Potassium 4.2 mmol/L (3.5-5.0)
[2017-07-25] MEDS: Vancomycin(*) 1,000 MG in NS 0.9% 250 ML* 250 ML IVPB SCH (09:15)
[2017-07-25] MEDS: Omeprazole CAP* 20 MG PO SCH (09:15)
[2017-07-25] MEDS: Docusate CAP* 100 MG PO SCH (09:15)
[2017-07-25] MEDS: Acetaminophen TAB* 325 MG PO PRN ×2 (09:15→15:12)
[2017-07-25] MEDS: Magnesium Oxide TAB* 400 MG PO SCH (09:16)
[2017-07-25] MEDS: Aspirin Low Dose CHEW TAB* 81 MG PO SCH (09:16)
[2017-07-25] MEDS: Gabapentin CAP(*) 300 MG PO SCH (09:16)
[2017-07-25] MEDS: Insulin LISPRO* 1 UNITS UNIT SUBCUT SCH ×3 (09:17→17:28)
[2017-07-25] MEDS: Nystatin TOP POWDER* 15 GM BTL TOPICAL SCH (11:35)
--- NOTE | 2017-07-25 13:55 | PN ---
Subjective Date of Service: 07/25/17 Interval History: Patient seen and examined at bedside. Pt states that she is feeling much better. Denies fever, chills, shortness of breath, chest discomfort, N/V/D. Pt states that the redness to her pannis is improving, and the pain has resolved. Family History: Unchanged from Admission Social History: Unchanged from Admission Past Medical History: Unchanged from Admission Objective Active Medications: Acetaminophen (Tylenol Tab*) 650 mg PO Q4H PRN Reason: FEVER/PAIN Amitriptyline HCl (Elavil Tab*) 200 mg PO BEDTIME AZAM Aspirin (Aspirin Low Dose Tab*) 81 mg PO DAILY AZAM Atorvastatin Calcium (Lipitor*) 5 mg PO BEDTIME AZAM Dextrose (D50w Syringe 50 Ml*) 12.5 gm IV PUSH .FOR FS < 60 - SS PRN Reason: FS < 60 Docusate Sodium (Colace Cap*) 100 mg PO BID AZAM Gabapentin (Neurontin Cap(*)) 600 mg PO BID AZAM Heparin Sodium (Porcine) (Heparin Vial(*)) 5,000 units SUBCUT Q8HR AZAM Heparin Sodium (Porcine) (Heparin Flush Picc/Ml/Cvc(*)) 1 ml FLUSH 0600,1800 AZAM Cefepime HCl (Maxipime 2 Gm In Dextrose Duplex (*)) 2 gm in 50 mls @ 100 mls/ hr IV Q24H AZAM Sodium Chloride (Ns 0.9% 1000 Ml*) 1,000 mls @ 100 mls/hr IV PER RATE AZAM Vancomycin HCl 1,000 mg/ (Sodium Chloride) 250 mls @ 166.667 mls/hr IVPB Q12H AZAM Insulin Glargine (Lantus(*)) 118 units SUBCUT BEDTIME AZAM Insulin Human Lispro (Humalog*) 0 units SUBCUT AC AZAM Levothyroxine Sodium (Synthroid Tab*) 200 mcg PO 0600 AZAM Magnesium Oxide (Magox 400 Tab*) 400 mg PO BID AZAM Nystatin (Nystatin Top Powder*) 1 applic TOPICAL BID AZAM Omeprazole (Prilosec Cap*) 40 mg PO DAILY@0730 AZAM Ondansetron HCl (Zofran Inj*) 4 mg IV Q6H PRN Reason: NAUSEA Pharmacy Consult (Vancomycin Per Pharmacy*) 1 note FOLLOW UP . PRN Pharmacy Profile Note (Vancomycin Trough Check) 1 note FOLLOW UP ONCE ONE Stop: 10/20/17 08:31 Vital Signs 07/24/17 07/24/17 07/24/17 15:56 19:06 20:00 Temperature 99.4 F 99.3 F Pulse Rate 100 106 Respiratory 20 22 22 Rate Blood Pressure 157/62 156/49 (mmHg) O2 Sat by Pulse 93 91 Oximetry 07/24/17 07/24/17 07/24/17 20:47 22:47 23:48 Temperature 98.4 F Pulse Rate 103 Respiratory 20 18 16 Rate Blood Pressure 121/52 (mmHg) O2 Sat by Pulse 88 Oximetry 07/24/17 07/25/17 07/25/17 23:50 03:57 07:58 Temperature 97.6 F 97.7 F Pulse Rate 103 98 Respiratory 16 18 Rate Blood Pressure 124/65 152/67 (mmHg) O2 Sat by Pulse 93 94 97 Oximetry 07/25/17 07/25/17 09:16 11:38 Temperature 97.7 F Pulse Rate 93 Respiratory 18 18 Rate Blood Pressure 133/74 (mmHg) O2 Sat by Pulse 97 Oximetry Oxygen Devices in Use Now: None Appearance: NAD, sitting up in a chair Ears/Nose/Mouth/Throat: Mucous Membranes Moist Respiratory: Symmetrical Chest Expansion and Respiratory Effort, Clear to Auscultation Cardiovascular: NL Sounds; No Murmurs; No JVD, RRR Abdominal: NL Sounds; No Tenderness; No Distention Extremities: No Edema Skin: - - Erythema to pannus improving, some weaping noted to lower pannus Neurological: Alert and Oriented x 3, NL Muscle Strength and Tone Lines/Tubes/Other Access: Clean, Dry and Intact Peripheral IV - site benign Nutrition: Taking PO's Result Diagrams: 07/25/17 06:42 07/25/17 06:42 Additional Lab and Data: Microbiology and Other Data: Microbiology 07/22/17 22:28 Nasal Screen MRSA (PCR)(YESENIA) - Final Nasal Mrsa Negative Assess/Plan/Problems-Billing Assessment: Ms. Polanco is a morbidly obese female with DM, HTN, HLD and hypothyroidism who presented with AMS, fever, dysuria and erythematous pannus who was initialy admitted to ICU for severe sepsis due to UTI and panniculitis. - Patient Problems (1) UTI (urinary tract infection) Comment: - Febrile yesterday, no leukocytosis - Urine culture, no growth - Discontinue Cefepime (2) Panniculitis Code(s): M79.3 - PANNICULITIS, UNSPECIFIED SNOMED Code(s): 28158667 Comment: - Febrile yesterday and no leukocytosis - Tender, erythematous and indurated - Empirically covered with Vanco and cefepime, change to keflex (3) Severe sepsis Code(s): A41.9 - SEPSIS, UNSPECIFIED ORGANISM; R65.20 - SEVERE SEPSIS WITHOUT SEPTIC SHOCK SNOMED Code(s): 08023247 Comment: - Present at admission secondary to UTI and panniculitis - SIRS and qSOFA criteria with fever, leukocytosis, hypotension and AMS at admission - No longer meets SIRS criteria or qSofa criteria - Blood cultures no growth, day 2 - Continue Cefepime and Vanco (4) ADITI (acute kidney injury) Code(s): N17.9 - ACUTE KIDNEY FAILURE, UNSPECIFIED SNOMED Code(s): 62390245 Comment: - Resolved, suspect acute on chronic - Secondary to sepsis - Suspect Pt is now at baseline (5) Diabetes Code(s): E11.9 - TYPE 2 DIABETES MELLITUS WITHOUT COMPLICATIONS SNOMED Code(s) : 07172325 Comment: - IDDM - Glucose 120-200's (6) Hypertension Code(s): I10 - ESSENTIAL (PRIMARY) HYPERTENSION SNOMED Code(s): 33434560 Comment: - Initially hypotensive at admission - Now normotensive, SBP 130-150's - Resume home antihypertensives (7) Hyperlipidemia Code(s): E78.5 - HYPERLIPIDEMIA, UNSPECIFIED SNOMED Code(s): 87278395 Comment: - Continue statin (8) Hypothyroidism Code(s): E03.9 - HYPOTHYROIDISM, UNSPECIFIED SNOMED Code(s): 46042088 Comment: - TSH 3.56 - 04/2017 - Continue levothyroxine (9) Morbid obesity Code(s): E66.01 - MORBID (SEVERE) OBESITY DUE TO EXCESS CALORIES SNOMED Code(s ): 219939056 Comment: - BMI 63 (10) DVT prophylaxis Code(s): FPH5883 - SNOMED Code(s): 469141320 Comment: - SQ heparin (11) Full code status Code(s): Z78.9 - OTHER SPECIFIED HEALTH STATUS SNOMED Code(s): 409902463 Status and Disposition: Inpatient. Stable for discharge to home.
[2017-07-25 16:18] VITALS: BP 150/73
[2017-07-26] MEDS ORDERED: Vancomycin Trough Check NOTE FOLLOW UP ONE (08:30)
--- NOTE | 2017-07-26 20:39 | DS ---
CC: Dr. Cooper Jones; fax [phone]* DISCHARGE SUMMARY: DATE OF ADMISSION: 07/22/17 DATE OF DISCHARGE: 07/25/17 ATTENDING PHYSICIAN: Jyoti Dykes MD* (dictated by Lanny Forde NP). PRIMARY CARE PROVIDER: Dr. Cooper Jones. PRIMARY DIAGNOSES: 1. Sepsis, resolved. 2. Panniculitis. 3. Acute kidney injury, improving. SECONDARY DIAGNOSES: 1. Diabetes mellitus. 2. Hypertension. 3. Hyperlipidemia. 4. Hypothyroidism. 5. Morbid obesity with body mass index of 63. STUDIES WHILE IN THE HOSPITAL: Chest x-ray on 07/22/17. Radiologist's impression: No acute disease is noted. DISCHARGE MEDICATIONS: [place] Medications: 1. Cephalexin 500 mg oral 4 times daily for 7 more days. 2. Acetaminophen 650 mg oral every 4 hours as needed for fever or pain. Continued Home Medications: 1. Amlodipine 5 mg oral daily. 2. Magnesium oxide 400 mg oral twice daily. 3. Gabapentin 600 mg oral twice daily. 4. Furosemide 40 mg oral daily. 5. Nystatin powder apply topical twice daily. 6. Aspirin 81 mg oral daily. 7. Amitriptyline 200 mg oral daily at bedtime. 8. Omeprazole 40 mg oral daily. 9. Metoprolol tartrate 50 mg oral daily. 10. Levothyroxine 200 mcg oral daily. 11. Fluconazole 150 mg oral as needed. 12. Lovastatin 20 mg oral daily. 13. Bydureon 2 mg subcutaneous weekly on . Changed Home Medication: Lantus insulin increased from 15 units subcutaneous to 18 units subcutaneous daily at bedtime. Discontinued Home Medication: Lisinopril. HISTORY OF PRESENT ILLNESS/HOSPITAL COURSE: Ms. Polanco is a 66-year-old female with past medical history significant for morbid obesity, diabetes mellitus, hypertension, hyperlipidemia, and hypothyroidism, who reported having dysuria and urinary frequency for several days. When the discomfort did not go away, she presented to urgent care and was started on Keflex 500 mg twice daily. Patient took a dose the day it was given to her and then took a dose on the morning of 07/22/17. The patient's family noted that she was acting very weak and drowsy and confused at times and just generally not acting like herself. Also noticed a significant amount of redness developing on her pannus. It was becoming warm to the touch and painful to the touch. Due to the concern, they brought the patient to the ER for further evaluation. While in the emergency room, the patient was initially noted to have a fever of 101.6. She was initially felt to have an urinary tract infection. She had white blood cell count of 15,000. She was hypotensive. The patient was found to be septic appearing and had concern for panniculitis versus UTI. The patient had a chest x-ray showing no acute findings. She had negative influenza swabs. CRP of 282, lactic acid of 1.4, creatinine of 2.72 and her baseline appears to be 1.2. Because of this, the hospitalists were asked to evaluate the patient for admission. While in the hospital, the patient's sepsis resolved. She was initially meeting SIRS and qSOFA criteria on admission. Her blood cultures had no growth on day #2. She was initially on cefepime and vancomycin to cover her panniculitis and possible UTI. The patient's urine culture showed no growth. The patient was given IV fluids for her acute kidney injury. Her lisinopril and Lasix were held. The patient's acute kidney injury was improving down to 1.03, which appears to be her baseline on the day of discharge. The patient's leukocytosis resolved. The patient's glucoses were relatively controlled on Lantus of 118 units daily. Patient was initially hypotensive at admission. This resolved and she was now normotensive to hypotensive and she was resumed on her antihypertensives with the exception of lisinopril. The patient remained afebrile for approximately 24 hours. The erythema and warmth improved to her pannus. It was no longer tender to palpation. Ms. Polanco is stable for discharge to home today. Vital signs are as follows: Temperature 97.7, heart rate 96, respiratory rate 18, O2 sat 95% on room air, blood pressure 150/73. DISCHARGE PLAN: Ms. Polanco will be discharged home. Activity as tolerated. She should be on a consistent carbohydrate diet. As far as the patient's panniculitis, she has been continued on Keflex 500 mg oral 4 times daily for 7 more days. She was placed on higher dosing due to her BMI. The patient has been setup with a followup appointment with her primary care provider, Dr. Jones, on 08/05/17 at 11 a.m. The patient was resumed on all her usual home medications with the exception of lisinopril during her acute illness. This can be resumed accordingly by her primary care provider. The patient has been setup with visiting nurse services. Patient has been asked to return to the emergency room for any chest pain, shortness of breath. This is a summarized report of a complex medical history and hospital stay. For further details, please see the entire medical record. TIME SPENT: Time for this discharge was approximately 50 minutes, greater than half of that was spent with the patient, discussing discharge plans and instructions. CONDITION ON DISCHARGE: Stable. LANNY FORDE, KONG [id number]/[facility] #: [id number] MTDÁlvaro
== END 2017-07-25 17:45 | disposition home health service (06) | DRG 872 ==
LOC: ED 16:24 → ICU 20:52 → MED 07-23 18:21
PROVIDERS: ADMIT Hospitalist; ATTEND Internal Medicine
PROC: 02HV33Z Insertion of Infusion Device into Superior Vena Cava, Percutaneous Approach (ICD-10-PCS; principal; 2017-07-23)
DX: A41.9 Sepsis, unspecified organism (principal); N17.9 Acute kidney failure, unspecified; M79.3 Panniculitis, unspecified; E11.9 Type 2 diabetes mellitus without complications; I10 Essential (primary) hypertension; R40.2412 Glasgow coma scale score 13-15, at arrival to emergency department; R65.20 Severe sepsis without septic shock; E78.5 Hyperlipidemia, unspecified; E03.9 Hypothyroidism, unspecified; E66.01 Morbid (severe) obesity due to excess calories; Z79.82 Long term (current) use of aspirin; Z79.4 Long term (current) use of insulin; Z90.49 Acquired absence of other specified parts of digestive tract; Z68.44 Body mass index [BMI] 60.0-69.9, adult; Z98.84 Bariatric surgery status; Z88.8 Allergy status to other drugs, medicaments and biological substances; Z88.5 Allergy status to narcotic agent; Z82.49 Family history of ischemic heart disease and other diseases of the circulatory system; Z83.1 Family history of other infectious and parasitic diseases; Z87.891 Personal history of nicotine dependence
CPT/HCPCS: 36415; 71020; 80048; 80053; 80202; 81003; 81015; 82550; 82570; 83605; 83735; 83880; 84300; 84484; 85025; 85610; 85652; 85730; 86140; 87040; 87086; 87502; 87641; 93005; A9270-GY; J0692; J0713; J1644; J3370